=== PATIENT | female | born 1980 | race Caucasian/White ===

== ENCOUNTER → 2019-02-10 15:02 | Outpatient (CLI) | payer OTHER, SELFPAY ==
[2019-02-14 12:18] LABS: HPV Reflexed? NOT INDICATED
== END ==
PROVIDERS: Visit Provider Obstetrics & Gynecology
DX: Z12.4 Encounter for screening for malignant neoplasm of cervix (principal)
CPT/HCPCS: 87624; 88175; G0145

== ENCOUNTER 2019-03-03 07:30 | Day surgery (SDC) | payer OTHER, SELFPAY ==
[2019-02-24 15:27] LABS: Hematocrit 36.9 % (37-47); Hemoglobin 12.4 g/dl (12.0-15.0); Mean Corp Hgb Conc 33.6 g/gl (32-36); Mean Corpuscular Hgb 29.1 pg (27.0-32.0); Mean Corpuscular Volume 86.6 fL (81-99); Mean Platelet Vol. 10.1 fl (6.2-12.0); Platelet Count 242 K/mm3 (150-450); RBC Distribution Width CV 12.6 % (11.6-14.6); RBC Distribution Width SD 38.7 fl (35.1-43.9); Red Blood Count 4.26 M/mm3 (4.2-5.4); White Blood Count 5.5 K/mm3 (4.4-11.0)
[2019-02-24 15:34] LABS: International Normalized Ratio 1.1; Prothrombin Time (Protime)PT. 13.5 SECONDS (11.7-14.9)
[2019-02-24 15:35] LABS: Partial Thromboplast Time 27.4 Seconds (24.1-36.2)
[2019-02-24 15:49] LABS: Scan Indicated on CBC? Y/N NO
[2019-02-24 15:51] LABS: Internal QC Validated? YES +Cl - CLEAR BKGD; Pregnancy, Serum, hCG Quali. NEGATIVE Negative
--- NOTE | 2019-03-02 11:19 | PCM.HP.BLA ---
History and Physical Date of Admission: 03/03/19 Surgical History and Physical Sharmila Lemus, a 38 year old female 2 0 0 0 2, presents for Dx L/S, LSO, RS on March 03, 2019 at 9:50. -- Persistent Left Ovarian Cyst; Desires Sterilization -- Pelvic pain which is ongoing. Sharmila claims it started gradual and has been present ongoing. It occurs intermittently. It is located in the lower abdominal. Sharmila characterizes it to be to the back. Associated signs and symptoms are left side mostly, pain with IC, lower back discomfort. Additional comments are: u/s showed 6 cm simple left ovarian cyst; also desires sterilization. MEDICATIONS HISTORY: ALLERGIES: NKA Infections - Chicken pox Illnesses - genital herpes, last outbreak 05/16 Accidents - no injuries of consequence Hospitalizations - Childbirth Review of Systems: GENERAL - Denies fever, or chills SKIN - Denies skin changes EYES - Denies visual changes EARS - Denies difficulty hearing NOSE - Denies nasal congestion or bleeding MOUTH - Denies sore throat or difficulty swallowing NECK - Denies pain or swelling RESPIRATORY - Denies shortness of breath or wheezing CARDIOVASCULAR - Denies palpitations or chest pain GASTROINTESTINAL - Denies nausea, vomiting, diarrhea, constipation GENITOURINARY - Denies dysuria, frequency of urination, incontinence of urine MUSCULOSKELETAL - Denies joint or muscle pain NEUROLOGICAL - Denies localized numbness or weakness PSYCHIATRIC - Denies depression or anxiety ENDOCRINE - Denies heat or cold intolerance, weight loss or gain HEMATO-IMMUNOLOGIC - Denies excesive bleeding with cuts SOCIAL HISTORY: Alcohol Use - denies drinking Smoking - denies smoking Diet - balanced Diet Lifestyle - Exercise - minimal Seat Belt Use - always Employer - [employer] Job Description - [employer] Illicit Drug Use - denies use of street drugs Sexual Activity - Hours Worked - 40 hours per week Spouse-Sig Other Name - Baldo Spouse-Sig Other Occupation - cook cold meat- [employer] Children Name(s) - MonyShemar Control - Vasectomy FAMILY HISTORY: Paternal history of Heart Disease. Father: Cerebrovascular accident(CVA). MENSTRUAL HISTORY: LMP Known?- definiteAmount/Duration - 3-4 DAYS, Regularity - Regular, Frequency - monthly days, LMP - 02/07/19, Age Onset Menarche - 10 PAST PREGNANCIES: Total Pregnancies - 2; Full Term Pregnancies - 2; Premature - 0; Abortions, Induced - 0; Abortions, Spontaneous - 0; Ectopics - 0; Multiple Births - 0; Living Children - 2 SURGICAL HISTORY: 1. [place] Teeth Removal, ' PHYSICAL EXAM BP- 130/86 Sitting, Right arm, regular cuff Temp- 98.2 Taken Orally Weight- 200.0 lbs Height- 64.50 inch BMI:33.87 CONSTITUTIONAL - NAD, well nourished, and well developed SKIN - No rash, lesions, or ulcers HEENT - Normocephalic, PERRLA, EOMI NECK - No nodes, no nuchal rigidity and thyroid normal size and texture LYMPH NODES - Palpation of lymph nodes in neck and groins within normal limits LUNGS - CTA x2 without wheezes, crackles or rales CARDIAC - Regular rate and rhythm without rubs, murmurs, or gallops BREAST - No dominant masses, no tenderness, no axillary adenopathy, no nipple discharge, no skin changes ABDOMEN - Without hepatosplenomegaly, distention, masses, rebound, or guarding; normal bowel sounds; no hernias EXTREMITIES - No edema or calf tenderness NEUROLOGICAL - Cranial nerves II-XII grossly intact PSYCHIATRIC - A and O to time, place, person, mood and affect External Genitial Vagina - non-tender without lesions Urethra/Urethral Meatus - non-tender Bladder - non-tender Vagina - vaginal matson are pink and moist without loss of rugae and no evidence of atropy Cervix - without cervical motion tenderness and has normal size and features without evident lesions Uterus - multiparous size 6 cm & wt 75-125 g Adnexa - clear without massess or tenderness ASSESSMENT/PLAN: 1. Ovarian Cyst Nos Discussed options for treatment and pt desires we proceed with LSO and RS. Discussed RBAs including the poossibility of not helping with pain or recurrence of cyst on the right and pt desires we proceed.
[2019-03-03 07:51] VITALS: BP 129/82; PULSE 85; RESP 14; TEMP 36.4; O2SAT 100; BMI 33.7
[2019-03-03 07:55] LABS: Internal QC Validated? YES +Cl - CLEAR BKGD; Pregnancy, Urine Negative Negative
--- NOTE | 2019-03-03 09:00 | FALS_PTH ---
PATIENT: ZEE EL LOC: [facility] U#:[id number] AGE/SX: 38/F ROOM: RE03/03/[address]: Dr. Anibal Chavez MD : 1980 BED: DIS: 03/03/2019 SPEC #: [id number] RECD: 03/03/19 13:35 STATUS: JEN REKapil #: [id number] ELDON: 03/03/19 09:[address]: Anibal Chavez DEPT: SURGICAL PATHOLOGY RECD BY: Ryan Lawson ENTERED: 03/03/19 13:51 SP TYPE: FALL TUBES OT DR: Dr. Tania Lozano, DO Tissues: A - Fallopian tube B - Fallopian tube Procedures: Surgery Specimen Level II HEADER OPERATION: Laparoscopic, left salpingo-oophorectomy, right salpingectomy PRE-OP DIAGNOSIS: Ovarian cyst TISSUE SUBMITTED: A. Left fallopian tube and ovary, B. Right fallopian tube MICROSCOPIC DIAGNOSIS A. Left fallopian tube and ovary: Ovary with multiloculated benign serous cyst. Left fallopian tube with intact lumen identified. B. Right fallopian tube: Fallopian tube with intact lumen identified. FA:blayne 03/04/19 MICROSCOPIC DESCRIPTION Slides are reviewed. GROSS DESCRIPTION A - Received in fixative is one container labeled with the patient's name and designated left fallopian tube and ovary. The specimen consists of a segment of fallopian tube and a separate portion of cystic ovary. The fallopian tube measures 6.2 cm in length x 0.6 cm in diameter. The serosal surface is angulo-pink and smooth. A fimbriated end is present. Cross-sections demonstrate a pinpoint lumen. The cystic ovary measures 6.5 x 3.5 x 1.5 cm. The ovary is opened to reveal a smooth internal lining. No septae are found. Data Modeler sections are submitted in two cassettes. B - Received in fixative is one container labeled with the patient's name and designated right fallopian tube. The specimen consists of a segment of fallopian tube measuring 6.5 cm in length x 0.7 cm in diameter. The serosal surface of the fallopian tube is angulo-pink and smooth. A fimbriated end is present. Cross-sections through the fallopian tube demonstrate a pinpoint lumen. Data Modeler sections are submitted in one cassette. / CE:blayen 03/03/19 TC:5 CPT: 59073 x2
--- NOTE | 2019-03-03 10:27 | OP.PCM_ITS ---
Report of Operation Date of Procedure: 03/03/19 Pre-Operative Diagnosis: Persistent Left Ovarian Cyst, Desires Permanent S terilization Post-Operative Diagnosis: Persistent Left Ovarian Cyst, Desires Permanent Sterilization Surgery/Procedure Performed:: Diagnostic Laparoscopy, Left Salpingo- Oophorectomy, Right Salpingectomy Description of Surgical Findings:: 7 cm left ovarian cyst. Normal right ovary with 3 cm functional cyst. Normal fallopian tubes. 8 cm uterus. Type of Anesthesia:: General - Endotracheal Anesthesiologist: Myriam Shultz Estimated Blood Loss (mL): Minimal Fluids Replaced: Crystalloid Description of Procedure: Surgeon: Anibal Chavez MD, FACOG Indications: This is a 38 year old patient who has the above diagnosis. She has also considered sterilization for quite some time. She has a persistent left ovarian cyst. She is aware of the permanent nature of the procedure, the failure rate of 1-2%, and the availability of other nonpermanent control options. All questions were answered to consider the patient well-informed. Procedure: The patient was taken to the operating room where after induction of general anesthesia, she was placed in the dorsolithotomy position and prepped and draped in the usual sterile fashion. The bladder was drained of approximately 250 cc of clear yellow urine with a catheter. Anterior cervix was grasped with the tenaculum. Conn cannula was placed and attention was turned toward the laparoscopic portion of the procedure. Approximately 30 cc of half percent ropivacaine was injected subumbilically, suprapubically and midway between. A 5 mm bladeless trocar was placed subumbilically and intraperitoneal placement confirmed. After CO2 insufflation was complete, a 10/12 mm bladeless trocar was introduced suprapubically. The above findings were noted. The ovarian cysts were drained with a suction device. A 5 mm port was then placed midway between these 2 ports for tubal manipulation. Each fallopian tube was identified to its fimbriated end and an Enseal device was used to divide the mesosalpinx on the right and the infundibulopelvic ligaments on the left. Specimens were removed through the lower 10/12 mm port. The peritoneal cavity was examined and noted to be normal. Photographs were taken. Laparoscopic instruments with as much CO2 gas as possible were removed and incisions were closed with interrupted 4-0 Monocryl suture. Steri-Strips placed across the incision. Vaginal instruments were removed. Patient tolerated procedure well was taken to recovery room in satisfactory condition sponge instrument and needle counts were all reportedly correct. Estimated blood loss for the case was minimal. There were no apparent complications of the surgery. Specimens to pathology was bilateral tubes and left ovary. Grafts/Implants Used: None - Complications None - Admit VTE Documentation VTE Present on Admission: Yes VTE Mechan Device Prophylaxis: SCD's
--- NOTE | 2019-03-03 10:34 | DCINST_ITS ---
Discharge Diet: No Restrictions - Increase fluid intake for the next 48 hours. Discharge Activity: Return to Normal Activity, May Drive - when you are no longer taking pain/narcotic medicines., May Shower, May Take a Tub Bath Additional Activity Instructions:: Ambulate often the next week after surgery. Nothing in the vagina for 5 days. Call your doctor if your incision/area has: Continuous Slow Oozing, Sudden Increased Bleeding, Increased Pain/ Swelling, Increased Redness, Foul Smelling Discharge Call your doctor if you observe: Fever of 101 or Higher, Inability to urinate, Inability to have a bowel movement, Using more than one pad per hour Allergies/Adverse Reactions: Allergies No Known Allergies Allergy (Verified 02/24/19 08:46) Medications to take at Discharge Vitamin C/Biotin [Pbtm-Aunm-Tyene Gummies] 1 each PO DAILY 02/24/19 Oxycodone [Oxyir] 5 mg PO Q6H PRN PRN 7 Days #14 tab 03/03/19 The following prescriptions were given: Oxycodone [Oxyir] 5 mg PO Q6H PRN PRN 7 Days #14 tab PRN Reason: Severe Pain (6-10/10) Prescription Printed Primary Care Physician: Tania Lozano DO [Primary Care Provider] - Test Results: Test results from this visit will be discussed in further detail at your follow- up appointment, if applicable. Please Follow Up With: Anibal Chavez MD - [phone] When: 2 to 3 weeks
[2019-03-03] MEDS: Ropivacaine 0.5% 30 ML Vial (10:38)
[2019-03-03 11:25] VITALS: BP 129/82; BP 140/86; PULSE 92; RESP 14; TEMP 36.6; O2SAT 99
[2019-03-03 11:30] VITALS: BP 129/82; BP 135/77; PULSE 80; RESP 14; O2SAT 98
[2019-03-03 11:46] VITALS: BP 129/82; BP 130/85; PULSE 65; RESP 14; TEMP 36.7; O2SAT 95
[2019-03-03 13:31] VITALS: BP 118/78; BP 129/82; PULSE 68; RESP 16; TEMP 36.6; O2SAT 99
== END 2019-03-03 13:30 | disposition home or self-care (01) ==
LOC: PAT 07:33 → AC 07:33
PROVIDERS: Referring Provider Obstetrics & Gynecology; Visit Provider Obstetrics & Gynecology
PROC: (CPT 58720; principal; 2019-03-03 08:45)
DX: Z30.2 Encounter for sterilization (principal); N83.202 Unspecified ovarian cyst, left side; N83.201 Unspecified ovarian cyst, right side; A60.00 Herpesviral infection of urogenital system, unspecified
CPT/HCPCS: 58661; 36415; 81025; 84703; 85027; 85610; 85730; 86850; 86900; 88302; J7120; C1760; J2405